=== PATIENT | female | born 1980 | race Caucasian/White ===

== ENCOUNTER 2022-02-06 01:47 | Emergency (ER) | payer BC, SELFPAY ==
--- NOTE | 2022-02-06 02:55 | PC.NURSE ---
waiting to be seen by provider
--- NOTE | 2022-02-06 03:11 | PC.NURSE ---
Report received from KARTHIK Grewal. Awaiting EDP evaluation.
--- NOTE | 2022-02-06 03:32 | PC.NURSE ---
Pt not in room or in area immediately outside of Emergency Department. Gown on stretcher. Assume pt left without being seen by the provider.
--- NOTE | 2022-02-06 03:36 | PC.NURSE ---
Per [employer] senior officer, pt said on her way out of the door good luck. I sat in that room for a fucking hour and no one came in. I'm going to another hospital . wire worker states that pt's gait was steady at discharge.
== END 2022-02-06 03:36 | disposition left against medical advice (07) ==
DX: Z53.21 Procedure and treatment not carried out due to patient leaving prior to being seen by health care provider (principal)
CPT/HCPCS: 99199

== ENCOUNTER 2022-02-06 03:52 | Emergency (ER) | payer BC, SELFPAY ==
--- NOTE | ~2022-02-06 | CT_ITS ---
EXAMINATION: CT lumbar spine wo con DATE: 02/06/2022 04:57 INDICATION: Low back pain radiating to the left buttock TECHNIQUE: Computed tomography (CT) of the lumbar spine was performed without intravenous contrast. A utomated exposure control and iterative reconstruction technique were employed. The dose-length produ ct was 457.80 mGy-cm. COMPARISON: None FINDINGS: Alignment is normal. Vertebral body and disc heights are normal. No fracture. Mild multilev el facet osteoarthritis throughout the lumbar spine. Mild disc height loss bilaterally at L3-L4 due t o greater degree at L4-L5. No central canal stenosis. Paravertebral soft tissues are unremarkable. Mi ld bilateral sacroiliac osteoarthritis. A few small sclerotic bone islands in the sacrum and visualiz ed ileum. IMPRESSION: 1. Minimal lumbar spondylosis. No acute osseous abnormality. 2. Mild bilateral sacroiliac osteoarthritis. Reviewed, dictated and finalized at location A.
[2022-02-06 03:55] VITALS: BP 125/77; PULSE 82; RESP 20; TEMP 37; O2SAT 100
--- NOTE | 2022-02-06 04:09 | ED.BACK ---
HPI - Back Pain/Injury General Chief Complaint: Back Pain/Injury Stated Complaint: Back pain Source: patient Mode of arrival: ambulatory History of Present Illness HPI Narrative: 41-year-old female presents to the ER with a 1 day history of -- low back pain. Pain is over her left sacroiliac region. Her pain radiates down the left leg up to her left knee. No motor or sensory loss. No bladder or bowel involvement. No fever. The patient went to [facility] for the same complaint but had to wait for many hours and was still not seen in the ER. She decided to come to [facility]. no history of trauma. No prior episodes of low back pain. She had a history of a tailbone fracture 4 years ago. MD elicited complaint: back pain Onset (ago): day(s) ( Started 1 day ago) Timing: constant Severity: severe Similar Symptoms Previously: No Quality: aching Location: lumbar spine ( lumbar spine and left sacroiliac joint) Radiation: left upper leg Exacerbating factors: movement Relieving factors: immobilization Associated symptoms: difficulty walking Related Data Allergies Allergy/AdvReac Type Severity Reaction Status Date / Time No Known Allergies Allergy Unknown Unverified 10/23/07 17:25 Review of Systems Review of Systems: All systems reviewed & are unremarkable except as noted in HPI and below Constitutional: Constitutional: Reports as per HPI and Reports no additional constitutional complaints Eyes: Eyes: Reports as per HPI and Reports no additional eye complaints ENT: Reports system reviewed and no additional complaints, except as documented and Reports as per HPI Cardiovascular: Cardiovascular: Reports as per HPI and Reports no additional cardiovascular complaints Respiratory: Respiratory: Reports as per HPI and Reports no additional respiratory complaints Gastrointestinal: Gastrointestinal: Reports as per HPI and Reports no additional gastrointestinal complaints Genitourinary: Genitourinary: Reports no additional female genitourinary complaints and Reports as per HPI Musculoskeletal: Musculoskeletal: Reports no additional musculoskeletal complaints, Reports as per HPI and Reports back pain Comments: low back pain radiating to left lower extremity. she is unable to lift her left leg is dragging it as she walks Integumentary/Breasts: Skin/Breast: Reports system reviewed and no additional complaints, except as docu Neurologic: Reports system reviewed and no additional complaints, except as documented and Reports as per HPI Psychiatric: Psychiatric: Reports no additional psychiatric complaints and Reports as per HPI Endocrine: Endocrine: Reports no additional endocrine complaints and Reports as per HPI Hematologic/Lymphatic: Hematologic/Lymphatic: Reports no additional hematologic/lymphatic complaints and Reports as per HPI Allergic/Immunologic: Allergic/Immunologic: Reports no additional allergic/immunologic complaints and Reports as per HPI [facility] Past Medical History Medical History Closed fracture of coccyx Exam Const: General: ill appearing Nutritional Appearance: well nourished Orientation/consciousness: patient oriented x3 Limitations: no limitations HENMT: Head: normal to inspection Ears: external ears normal General nose exam: Normal external nose present Face and sinus: normal facial exam Mouth: Yes Normal oral and palatal mucosa present Eyes: Conjunctivae: conjunctivae normal Pupils: Equal, round and reactive pupils present EOM: EOMs intact bilaterally Direct Ophthalmoscopy: no photophobia Neck: Neck: normal visual inspection, no lymphadenopathy and no meningeal signs Chest: Chest palpation & inspection: normal inspection of the chest Resp: Effort & Inspection: normal respiratory effort Auscultation: clear to auscultation bilaterally Cardio: Rate: regular rate Rhythm: regular rhythm GI: Auscultation: normal bowel sounds Oth
[2022-02-06] MEDS: ONDANSETRON HCL ODT 4 MG TABLET PO (04:24)
[2022-02-06] MEDS: HYDROmorphone HCL INJ (*CRX) 2 MG/ML VIAL 0.5 MG IM (04:24)
[2022-02-06 04:32] LABS: Add Urine Microscopic? YES; Appearance Urine Clear (Clear); Bilirubin Urine Negative (Negative); Blood Urine 2+ (Negative); Color Urine Light Yellow (Yellow); Glucose Urine UA Negative (Negative); Ketones Urine Negative (Negative); Leukocyte Esterase Ur Negative LEU/UL (Negative); Nitrate Urine Negative (Negative); Protein Urine Negative (Negative); Urobilinogen Urine 0.2 mg/dL (0.2-1.0); pH Urine 5.5 (5.0-8.0)
[2022-02-06 04:33] VITALS: BP 124/72; PULSE 72; RESP 20; O2SAT 98
[2022-02-06 04:34] LABS: Pregnancy On Board Control Positive; Urine Pregnancy Test Negative
[2022-02-06 04:37] LABS: Bacteria Urine Trace /hpf; Squamous Epithelial Cell Urine Rare /hpf (Few); WBC Urine 0-3 /hpf (0-3)
[2022-02-06 06:03] VITALS: BP 120/88; PULSE 70; RESP 18; O2SAT 96
[2022-02-06] MEDS: methylPREDNISolone SOD SUCC 125 MG VIAL IM (07:24)
[2022-02-06] MEDS: KETOROLAC 30 MG/ML VIAL (*BKC) IM (07:24)
[2022-02-06 07:40] VITALS: BP 115/73; PULSE 82; RESP 16; O2SAT 98
== END 2022-02-06 07:40 | disposition home or self-care (01) ==
PROVIDERS: Emergency Provider Internal Medicine Critical Care Medicine
DX: M47.816 Spondylosis without myelopathy or radiculopathy, lumbar region (principal); M46.1 Sacroiliitis, not elsewhere classified
CPT/HCPCS: 72131; 81001; 81025; 96372; 99284; A9270; J1170; J1885; J2930